=== PATIENT | female | born 1995 | race Caucasian/White ===

== ENCOUNTER 2016-07-25 13:05 | Observation (INO) | payer OTHER ==
[~2016-07-25] VITALS: Ht 172.7 cm; Wt 78.0 kg
[~2016-07-25 13:05] MED LIST: ALPR-411 PO; IBUP-1050 PO; PRLSR20 PO; PROM25TA PO; SERT50TA PO
[2016-07-25] MEDS ORDERED: SODIUM CHLORIDE 0.9% 1000ML 1,000 ML IV STA (13:29)
[2016-07-25] MEDS ORDERED: ONDANSETRON INJ 2 MG/ML 2 ML VIAL IV STA (13:29)
[2016-07-25] MEDS ORDERED: OPTIRAY 320 IV PRN (13:45)
[2016-07-25] MEDS ORDERED: GABA-113 PO (13:49)
[2016-07-25] MEDS ORDERED: FLUO20CA35 PO (13:49)
[2016-07-25] MEDS ORDERED: LINA1CAP PO ×2 (13:49→19:14)
[2016-07-25] MEDS ORDERED: PROM25TA9 PO (13:49)
[2016-07-25] MEDS ORDERED: DULO-24 PO (13:49)
[2016-07-25] MEDS ORDERED: LORA-741 PO (13:49)
[2016-07-25 14:11] LABS: BASO % 0.2 %; BASO ABS # 0.04 K/uL (0-0.2); COMPLETE YES; EOS % 0.9 %; HEMATOCRIT 40.8 % (37-47); IG% 0.4 %; LYMPH % 6.4 %; LYMPH ABS # 1.26 K/uL (1.2-3.4); MEAN CELL VOLUME 89.5 fL (80-100); MEAN CORPUSCULAR HEMOGLOBIN 29.8 pg (25-34); MEAN CORPUSCULAR HGB CONC 33.3 g/dl (32-36); MEAN PLATELET VOLUME 10.8 fL (7.4-10.4); MONO % 2.9 %; NEUT % 89.2 %; PLATELET COUNT 261 K/uL (130-400); RED BLOOD COUNT 4.56 M/uL (4.2-5.4); WHITE BLOOD COUNT 19.67 K/uL (4.8-10.8)
[2016-07-25 14:54] LABS: ALB/GLOB RATIO 1.1 (0.9-2); BUN/CREATININE RATIO 9.4 (10-20); POTASSIUM 3.5 mmol/L (3.5-5.1)
--- NOTE | 2016-07-25 15:07 | EMERGENCY ROOM VISIT NOTE ---
History First contact with patient: 13:18 Chief Complaint: GI ASSESSMENT Stated Complaint: GAS,PAIN,VOMITING,DIZZY,NO BM FOR 2 DAYS Nursing Triage Summary: pt to the ED with c/o bright red blood with BM which she has had for months and dunia told her it was from constipation pain around umbilicus History of Present Illness The patient is a 21 year old female who presents to the Emergency Room with complaints of abdominal pain. The patient reports a history of chronic constipation and chronic hematochezia. She had a colonoscopy approximately one month ago which was otherwise unremarkable. The patient sees Dr. Yepez. She states that she has not had a bowel movement for 2 days. She reports diffuse abdominal pain which is worse in the right lower quadrant. She reports nausea. She rates her discomfort a 7/10. She denies fevers. She reports feeling dizzy and having nausea and vomiting. She denies any urinary symptoms. She denies any history of abdominal surgery. Review of Systems A 10 system review of systems was completed with positives and pertinent negatives listed in the HPI. Past Medical/Surgical History Medical Problems: (1) Anxiety (2) Chronic back pain (3) Colitis (4) Constipation (5) Depression (6) Fibromyalgia (7) GERD (gastroesophageal reflux disease) (8) Lyme disease (9) Mononucleosis (10) Pneumonia Surgical Problems: (1) H/O colonoscopy (2) H/O esophagogastroduodenoscopy (3) S/P tonsillectomy Social History Alcohol Use: none Drug Use: none Marital Status: single Housing Status: lives with family Occupation Status: unemployed Current/Historical Medications Scheduled Duloxetine HCl (Cymbalta), 20 MG PO DAILY Fluoxetine (Prozac), 60 MG PO HS Gabapentin (Neurontin), 600 MG PO TID Linaclotide (Linzess), 1 TAB PO Q2D Omeprazole (Prilosec), 20 MG PO DAILY Scheduled PRN Cyclobenzaprine Hcl (Flexeril), 10 MG PO Q6 PRN for Muscle Spasms Lidocaine-Hydrocortisone Aceta (Lidazone Hc), 1 APPLN DC UD PRN for rectal pain Lorazepam (Ativan), 0.5 MG PO DAILY PRN for Anxiety Jcfdmujzy-Wpmjnldiyuwci-Qckiit (Preparation H), 1 APPLN DC UD PRN for rectal pain Promethazine Hcl (Phenergan), 25 MG PO Q6H PRN for Nausea Allergies Coded Allergies: Escitalopram (Unverified Allergy, Severe, DRY HEAVE, 07/25/16) Pineapple (Verified Allergy, Unknown, TONGUE SWELLS,ITCHING, 07/25/16) Physical Exam Vital Signs Date Time Temp Pulse Resp B/P Pulse Ox O2 Delivery O2 Flow Rate FiO2 07/25/16 18:04 36.8 07/25/16 17:54 100 Room Air 07/25/16 17:26 78 14 130/74 100 Room Air 07/25/16 16:23 88 16 127/92 100 Room Air 07/25/16 14:55 84 16 111/80 100 Room Air 07/25/16 13:48 96 16 122/77 99 Room Air 07/25/16 13:14 86 16 117/81 99 Room Air Physical Exam VITALS: Vitals are noted on the nurse's note and reviewed by myself. Vital signs stable. The patient is afebrile. GENERAL: This is a 21-year-old female, in no acute distress, nondiaphoretic, well-developed well-nourished. SKIN: The skin was without rashes, erythema, edema, or bruising. There is no tenting of the skin. Capillary reflex less than 2 seconds. HEAD: Normocephalic atraumatic. EARS: External ears are normal in appearance. EYES: Pupils equal round and reactive to light and accommodation. Conjunctivae without injection, sclerae without icterus. Extraocular movements intact. NOSE: Patent, turbinates without inflammation or discharge. MOUTH: Mucous membranes moist. Tonsils are not enlarged. Pharynx without erythema or exudate. Uvula midline. Airway patent. Tongue does not deviate. NECK: Supple without nuchal rigidity. No JVD. HEART: Regular rate and rhythm without murmurs gallops or rubs. LUNGS: Clear to auscultation bilaterally without wheezes, rales or rhonchi. No retractions or accessory muscle use. ABDOMEN: Positive bowel sounds x 4. Soft, mild diffuse tenderness, moderate right lower quadrant tenderness masses or organomegaly. MUSCULOSKELETAL: No muscle atrophy, erythema, or edema noted. Full range of motion in all extremities. Normal gait. Strength 5/5 throughout. NEURO: Patient was alert and oriented to person place and time. No focal neurological deficits. Medical Decision & Procedures ER Provider Diagnostic Interpretation: CT SCAN OF THE ABDOMEN AND PELVIS WITH IV CONTRAST CLINICAL HISTORY: Right lower quadrant abdominal pain. Constipation. COMPARISON STUDY: Abdominal CT dated 10/27/2012. TECHNIQUE: Following the IV administration of 92 cc of Optiray 320, CT scan of the abdomen and pelvis is performed from the lung bases to the proximal femora. Images are reviewed in the axial, sagittal, and coronal planes. IV contrast was administered without complication. Automated dose control exposure was utilized. CT DOSE: 404.12 mGy.cm FINDINGS: Lung bases: The heart is normal in size and without pericardial effusion. The lung bases are clear. Liver: The contrast-enhanced liver is normal in size, contour, and attenuation. There is no intrahepatic biliary ductal dilatation. The hepatic veins and portal veins are patent. Gallbladder: Unremarkable. Spleen: Normal in size and attenuation. Pancreas: Unremarkable. Adrenal glands: Unremarkable. Kidneys: The contrast enhanced kidneys are normal in size and without hydronephrosis. The kidneys enhance symmetrically. There is a circumaortic left renal vein. Abdominal vasculature: The abdominal aorta is normal in course and caliber. Bowel: The small bowel and colon are normal in course and caliber. There is wall thickening and mucosal edema seen throughout the colon, greatest involving the right colon. There is faint pericolonic stranding, and the appearance is consistent with a mild pancolitis. The appendix is is well-visualized and normal. Peritoneum: There is no intraperitoneal free air or abdominal ascites. There is a tiny fat-containing umbilical hernia. Lymphadenopathy: None. Pelvic viscera: The bladder, uterus, and adnexa are normal as visualized. There are bilateral ovarian follicles. Skeletal structures: No lytic or blastic lesions are seen. IMPRESSION: Findings are consistent with a nonspecific pancolitis, likely on an infectious or inflammatory basis in this age group. Laboratory Results 07/25/16 13:45 Red Blood Count 4.56, Mean Corpuscular Volume 89.5, Mean Corpuscular Hemoglobin 29.8, Mean Corpuscular Hemoglobin Concent 33.3, Mean Platelet Volume 10.8, Neutrophils (%) (Auto) 89.2, Lymphocytes (%) (Auto) 6.4, Monocytes (%) (Auto) 2.9, Eosinophils (%) (Auto) 0.9, Basophils (%) (Auto) 0.2, Neutrophils # (Auto) 17.56, Lymphocytes # (Auto) 1.26, Monocytes # (Auto) 0.57, Eosinophils # (Auto) 0.17, Basophils # (Auto) 0.04 07/25/16 13:45 Test 07/25/16 13:45 07/25/16 18:00 White Blood Count 19.67 K/uL (4.8-10.8) Red Blood Count 4.56 M/uL (4.2-5.4) Hemoglobin 13.6 g/dL (12.0-16.0) Hematocrit 40.8 % (37-47) Mean Corpuscular Volume 89.5 fL (80-100) Mean Corpuscular Hemoglobin 29.8 pg (25-34) Mean Corpuscular Hemoglobin Concent 33.3 g/dl (32-36) Platelet Count 261 K/uL (130-400) Mean Platelet Volume 10.8 fL (7.4-10.4) Neutrophils (%) (Auto) 89.2 % Lymphocytes (%) (Auto) 6.4 % Monocytes (%) (Auto) 2.9 % Eosinophils (%) (Auto) 0.9 % Basophils (%) (Auto) 0.2 % Neutrophils # (Auto) 17.56 K/uL (1.4-6.5) Lymphocytes # (Auto) 1.26 K/uL (1.2-3.4) Monocytes # (Auto) 0.57 K/uL (0.11-0.59) Eosinophils # (Auto) 0.17 K/uL (0-0.5) Basophils # (Auto) 0.04 K/uL (0-0.2) RDW Standard Deviation 39.8 fL (36.4-46.3) RDW Coefficient of Variation 12.1 % (11.5-14.5) Immature Granulocyte % (Auto) 0.4 % Immature Granulocyte # (Auto) 0.07 K/uL (0.00-0.02) Urine Color DK YELLOW Urine Appearance CLEAR (CLEAR) Urine pH 5.0 (4.5-7.5) Urine Specific [place] 1.009 (1.000-1.030) Urine Protein NEG (NEG) Urine Glucose (UA) NEG (NEG) Urine Ketones NEG (NEG) Urine Occult Blood NEG (NEG) Urine Nitrite NEG (NEG) Urine Bilirubin NEG (NEG) Urine Urobilinogen NEG (NEG) Urine Leukocyte Esterase SMALL (NEG) Urine WBC (Auto) 5-10 /hpf (0-5) Urine RBC (Auto) 0-4 /hpf (0-4) Urine Hyaline Casts (Auto) 1-5 /lpf (0-5) Urine Epithelial Cells (Auto) >30 /lpf (0-5) Urine Bacteria (Auto) NEG (NEG) Anion Gap 7.0 mmol/L (3-11) Est Creatinine Clear Calc Drug Dose 96.9 ml/min Estimated GFR () 92.6 Estimated GFR (Non- 79.9 BUN/Creatinine Ratio 9.4 (10-20) Calcium Level 9.0 mg/dl (8.5-10.1) Total Bilirubin 0.3 mg/dl (0.2-1) Aspartate Amino Transf (AST/SGOT) 17 U/L (15-37) Alanine Aminotransferase (ALT/SGPT) 21 U/L (12-78) Alkaline Phosphatase 90 U/L (45-117) Total Protein 7.4 gm/dl (6.4-8.2) Albumin 3.9 gm/dl (3.4-5.0) Globulin 3.5 gm/dl (2.5-4.0) Albumin/Globulin Ratio 1.1 (0.9-2) Lipase 151 U/L (73-393) Medications Administered Medications (Trade) Dose Ordered Sig/Mel Route Start Time Stop Time Status Last Admin Dose Admin Sodium Chloride (Nss 1000ml) 1,000 ml @ 999 mls/hr Q1H1M STAT IV 07/25/16 13:29 07/25/16 14:29 DC 07/25/16 13:44 999 MLS/HR Ondansetron HCl (Zofran Inj) 4 mg NOW STAT IV 07/25/16 13:29 07/25/16 13:32 DC 07/25/16 13:44 4 MG Ciprofloxacin/ Dextrose (Cipro / D5w) 400 mg NOW STAT IV 07/25/16 17:10 07/25/16 17:11 DC 07/25/16 17:24 400 MG Metronidazole (Flagyl / Nss) 500 mg NOW STAT IV 07/25/16 17:10 07/25/16 17:11 DC 07/25/16 17:24 500 MG ED Course The patient was seen and examined. Previous visits were reviewed. The patient does not have a fever. She does have a leukocytosis of 19.67. She does not have any significant electrolyte abnormalities. Lipase was not elevated. Urinalysis suggests contamination. Stool studies are pending. CT scan of abdomen and pelvis reveals pancolitis The patient was hydrated with normal saline She was given 4 mg IV Zofran She was given 400 mg IV Cipro She was given 500 mg IV Flagyl The patient presents to the emergency department with an ongoing history of intermittent abdominal pain, hematochezia, constipation. The patient has seen Dr. Yepez and had a colonoscopy in April. Her sister has ulcerative colitis and her mother has IBS. The patient was found to have a leukocytosis and a pancolitis on CT scan. I discussed the case with Eliot Stockton. She recommended IV Cipro, IV Flagyl, stool studies admission to the hospital service. [facility] will [facility] the patient The case was discussed with Dr. Hernandez who agrees with the assessment and treatment plan Medical Decision DIFFERENTIAL DIAGNOSIS: Hepatitis, cholecystitis, cholangitis, biliary colic, pancreatitis, pneumonia, subdiaphragmatic abscess, appendicitis, inguinal hernia , nephrolithiasis, inflammatory bowel disease, mesenteric adenitis, peptic ulcer disease, GERD, gastritis, pancreatitis, myocardial infarction, pericarditis, ruptured aortic aneurysm, appendicitis, gastroenteritis, bowel obstruction, splenic infarct, diverticulitis, mesenteric ischemia, metabolic, peritonitis, among others. Impression Primary Impression: Pancolitis Additional Impressions: Leukocytosis Right lower quadrant abdominal pain Departure Information Referrals Chong Malin M.D. (PCP) Patient Instructions [facility] Problem Qualifiers Additional Impressions:
[2016-07-25 16:04] LABS: URINE APPEARANCE CLEAR (CLEAR); URINE BILIRUBIN NEG (NEG); URINE COLOR DK YELLOW; URINE EPITHELIAL CELL AUTO >30 /lpf (0-5); URINE NITRITE NEG (NEG); URINE SPECIFIC GRAVITY 1.009 (1.000-1.030); UROBILINOGEN NEG (NEG); ZZUR CULT IF INDIC CLEAN CATCH NO
[2016-07-25 16:12] LABS: MANUAL MICROSCOPIC REQUIRED? NO; REVIEW REQ? NO
--- NOTE | 2016-07-25 16:28 | DIAGNOSTIC IMAGING REPORT ---
CT SCAN OF THE ABDOMEN AND PELVIS WITH IV CONTRAST CLINICAL HISTORY: Right lower quadrant abdominal pain. Constipation. COMPARISON STUDY: Abdominal CT dated 10/27/2012. TECHNIQUE: Following the IV administration of 92 cc of Optiray 320, CT scan of the abdomen and pelvis is performed from the lung bases to the proximal femora. Images are reviewed in the axial, sagittal, and coronal planes. IV contrast was administered without complication. Automated dose control exposure was utilized. CT DOSE: 404.12 mGy.cm FINDINGS: Lung bases: The heart is normal in size and without pericardial effusion. The lung bases are clear. Liver: The contrast-enhanced liver is normal in size, contour, and attenuation. There is no intrahepatic biliary ductal dilatation. The hepatic veins and portal veins are patent. Gallbladder: Unremarkable. Spleen: Normal in size and attenuation. Pancreas: Unremarkable. Adrenal glands: Unremarkable. Kidneys: The contrast enhanced kidneys are normal in size and without hydronephrosis. The kidneys enhance symmetrically. There is a circumaortic left renal vein. Abdominal vasculature: The abdominal aorta is normal in course and caliber. Bowel: The small bowel and colon are normal in course and caliber. There is wall thickening and mucosal edema seen throughout the colon, greatest involving the right colon. There is faint pericolonic stranding, and the appearance is consistent with a mild pancolitis. The appendix is is well-visualized and normal. Peritoneum: There is no intraperitoneal free air or abdominal ascites. There is a tiny fat-containing umbilical hernia. Lymphadenopathy: None. Pelvic viscera: The bladder, uterus, and adnexa are normal as visualized. There are bilateral ovarian follicles. Skeletal structures: No lytic or blastic lesions are seen. IMPRESSION: Findings are consistent with a nonspecific pancolitis, likely on an infectious or inflammatory basis in this age group. Electronically signed by: Armin Wong M.D. 07/25/2016 4:26 PM Dictated Date/Time: 07/25/2016 4:21 PM
[2016-07-25] MEDS ORDERED: CIPROFLOXACIN 400MG / 200ML D5W IV STA (17:10)
[2016-07-25] MEDS ORDERED: METRONIDAZOLE 500MG / 100ML NSS IV STA (17:10)
[2016-07-25 17:54] VITALS: O2SAT 100; Ht 172.7 cm; Wt 78.0 kg
[2016-07-25] MEDS ORDERED: PRAMCRE2 PR (18:38)
[2016-07-25] MEDS ORDERED: [UNRECOGNIZED DRUG - CODE] PR (18:38)
[2016-07-25] MEDS ORDERED: CYCL10TA6 PO (18:38)
[2016-07-25] MEDS: ONDANSETRON INJ 2 MG/ML 2 ML VIAL IV PRN (18:43)
[2016-07-25] MEDS ORDERED: LORAZEPAM 0.5 MG TAB PO PRN (18:45)
[2016-07-25] MEDS ORDERED: NON-FORMULARY MEDICATION (Linaclotide (Linzess) 145 MCG) PO SCH (18:45)
[2016-07-25] MEDS ORDERED: PROMETHAZINE HCL 25 MG TAB PO PRN (18:45)
[2016-07-25] MEDS ORDERED: IV FLUIDS COMPLETED PRN (18:45)
--- NOTE | 2016-07-25 19:16 | History and Physical ---
History & Physical Date & Time of Service: Jul 25, 2016 at 18:41 Chief Complaint: Gas,Pain,Vomiting,Dizzy,No Bm For 2 Days Primary Care Physician: Chong Malin M.D. History of Present Illness Source: patient, clinic records This is a 21 year old female with PMH of GERD, chronic constipation, chronic back pain, fibromyalgia, depression, anxiety, who presents to the ED with abdominal pain. She was seen by Ana AGUERO in Apr 2016 for rectal bleeding and chronic constipation.. Had colonoscopy 04/26/2016 which showed hemorrhoids and solitary rectal ulcer. She reports ongoing constipation up until today with ongoing rectal pain, straining for stool, and bright red blood per rectum (blood fills the toilet with every BM). Then this morning she developed sharp pain in central low abdomen with diffuse "gas pain" and sensation she needed to defecate. After that time has had 2 liquid BM's with bright red blood. Passing stool helped the pain which was initially 8/10 and now rated 2/10. She reports associated fatigue, generalized weakness, feeling off balance. Last food intake was at 6 am today. PO intake was normal before. Has chronic intermittent nausea relieved by Phenergan. Reflux has been controlled on omeprazole. Weight has been stable. Not taking narcotic pain med in past 1 month. Denies fever, chills, sweats, oral sores, swallowing difficulty , URI symptoms, cough, CP, SOB, vomiting, melena, dysuria, frequency, urgency, rash, calf pain, edema. 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 diff. No recent travel or antibiotics. The pt does not have a personal hx of inflammatory bowel disease. No hx of abdominal surgery. Past Medical/Surgical History Medical Problems: (1) Anxiety Status: Chronic (2) Chronic back pain Status: Chronic (3) Constipation Status: Chronic (4) Depression Status: Chronic (5) Fibromyalgia Status: Chronic (6) GERD (gastroesophageal reflux disease) Status: Chronic (7) Lyme disease Status: Resolved (8) Mononucleosis Status: Resolved (9) Pneumonia Status: Resolved Surgical Problems: (1) H/O colonoscopy Permanent Comment: 04/26/2016- hemorrhoids, solitary rectal ulcer Status: Chronic (2) H/O esophagogastroduodenoscopy Permanent Comment: WNL in 11/2012 Status: Chronic (3) S/P tonsillectomy Status: Chronic Family History Ulcerative colitis SISTER Social History Smoking Status: Never Smoker Alcohol Use: occasionally (1-2 drinks per year) Drug Use: none Marital Status: single, in relationship Housing status: lives with family (with mother and fiance) Occupational Status: employed (nurse at alf) Allergies Coded Allergies: Escitalopram (Unverified Allergy, Severe, DRY HEAVE, 07/25/16) Pineapple (Verified Allergy, Unknown, TONGUE SWELLS,ITCHING, 07/25/16) Home Medications Scheduled Duloxetine HCl (Cymbalta), 20 MG PO DAILY Fluoxetine (Prozac), 60 MG PO HS Gabapentin (Neurontin), 600 MG PO TID Linaclotide (Linzess), 1 TAB PO Q2D Omeprazole (Prilosec), 20 MG PO DAILY Scheduled PRN Cyclobenzaprine Hcl (Flexeril), 10 MG PO Q6 PRN for Muscle Spasms Lidocaine-Hydrocortisone Aceta (Lidazone Hc), 1 APPLN MT UD PRN for rectal pain Lorazepam (Ativan), 0.5 MG PO DAILY PRN for Anxiety Rjdcwxxas-Jesjlolunjolp-Mabgpe (Preparation H), 1 APPLN MT UD PRN for rectal pain Promethazine Hcl (Phenergan), 25 MG PO Q6H PRN for Nausea Review of Systems Ten point ROS performed with pertinent positives and negatives noted in HPI. Physical Exam Vital Signs Date Time Temp Pulse Resp B/P Pulse Ox O2 Delivery O2 Flow Rate FiO2 07/25/16 18:04 36.8 07/25/16 17:54 100 Room Air 07/25/16 17:26 78 14 130/74 100 Room Air 07/25/16 16:23 88 16 127/92 100 Room Air 07/25/16 14:55 84 16 111/80 100 Room Air 07/25/16 13:48 96 16 122/77 99 Room Air 07/25/16 13:14 86 16 117/81 99 Room Air General Appearance: WD/WN, no apparent distress, + pertinent finding (pleasant alert 21 year old female, lying in bed, no distress) Head: normocephalic, atraumatic Eyes: normal inspection, PERRL, sclerae normal ENT: hearing grossly normal, pharynx normal Neck: supple, trachea midline Respiratory/Chest: lungs clear, normal breath sounds, no respiratory distress Cardiovascular: regular rate, rhythm, no murmur Abdomen/GI: normal bowel sounds, soft, + pertinent finding (moderately tender in suprapubic region. mildly tender in RLQ. no guarding. no rebound tenderness. ) Extremities/Musculoskelatal: no calf tenderness, normal capillary refill, no pedal edema Neurologic/Psych: alert, normal mood/affect, oriented x 3, + pertinent finding (grossly nonfocal ) Skin: normal color, warm/dry Diagnostics Laboratory Results Results Past 24 Hours Test 07/25/16 13:45 07/25/16 18:00 Range/Units White Blood Count 19.67 4.8-10.8 K/uL Red Blood Count 4.56 4.2-5.4 M/uL Hemoglobin 13.6 12.0-16.0 g/dL Hematocrit 40.8 37-47 % Mean Corpuscular Volume 89.5 80-100 fL Mean Corpuscular Hemoglobin 29.8 25-34 pg Mean Corpuscular Hemoglobin Concent 33.3 32-36 g/dl Platelet Count 261 130-400 K/uL Mean Platelet Volume 10.8 7.4-10.4 fL Neutrophils (%) (Auto) 89.2 % Lymphocytes (%) (Auto) 6.4 % Monocytes (%) (Auto) 2.9 % Eosinophils (%) (Auto) 0.9 % Basophils (%) (Auto) 0.2 % Neutrophils # (Auto) 17.56 1.4-6.5 K/uL Lymphocytes # (Auto) 1.26 1.2-3.4 K/uL Monocytes # (Auto) 0.57 0.11-0.59 K/uL Eosinophils # (Auto) 0.17 0-0.5 K/uL Basophils # (Auto) 0.04 0-0.2 K/uL RDW Standard Deviation 39.8 36.4-46.3 fL RDW Coefficient of Variation 12.1 11.5-14.5 % Immature Granulocyte % (Auto) 0.4 % Immature Granulocyte # (Auto) 0.07 0.00-0.02 K/uL Urine Color DK YELLOW Urine Appearance CLEAR CLEAR Urine pH 5.0 4.5-7.5 Urine Specific [place] 1.009 1.000-1.030 Urine Protein NEG NEG Urine Glucose (UA) NEG NEG Urine Ketones NEG NEG Urine Occult Blood NEG NEG Urine Nitrite NEG NEG Urine Bilirubin NEG NEG Urine Urobilinogen NEG NEG Urine Leukocyte Esterase SMALL NEG Urine WBC (Auto) 5-10 0-5 /hpf Urine RBC (Auto) 0-4 0-4 /hpf Urine Hyaline Casts (Auto) 1-5 0-5 /lpf Urine Epithelial Cells (Auto) >30 0-5 /lpf Urine Bacteria (Auto) NEG NEG Sodium Level 143 136-145 mmol/L Potassium Level 3.5 3.5-5.1 mmol/L Chloride Level 107 98-107 mmol/L Carbon Dioxide Level 29 21-32 mmol/L Anion Gap 7.0 3-11 mmol/L Blood Urea Nitrogen 9 7-18 mg/dl Creatinine 1.00 0.60-1.20 mg/dl Est Creatinine Clear Calc Drug Dose 96.9 ml/min Estimated GFR () 92.6 Estimated GFR (Non- 79.9 BUN/Creatinine Ratio 9.4 10-20 Random Glucose 122 70-99 mg/dl Calcium Level 9.0 8.5-10.1 mg/dl Total Bilirubin 0.3 0.2-1 mg/dl Aspartate Amino Transf (AST/SGOT) 17 15-37 U/L Alanine Aminotransferase (ALT/SGPT) 21 12-78 U/L Alkaline Phosphatase 90 45-117 U/L Total Protein 7.4 6.4-8.2 gm/dl Albumin 3.9 3.4-5.0 gm/dl Globulin 3.5 2.5-4.0 gm/dl Albumin/Globulin Ratio 1.1 0.9-2 Lipase 151 73-393 U/L Microbiology Results 07/25/16 WBC Smear, Received Pending 07/25/16 Shiga Toxin Test, Received Pending 07/25/16 Stool Culture, Received Pending 07/25/16 C.difficile Toxin B Gene (PCR), Received Pending Diagnostic Radiology CT SCAN OF THE ABDOMEN AND PELVIS WITH IV CONTRAST CLINICAL HISTORY: Right lower quadrant abdominal pain. Constipation. COMPARISON STUDY: Abdominal CT dated 10/27/2012. TECHNIQUE: Following the IV administration of 92 cc of Optiray 320, CT scan of the abdomen and pelvis is performed from the lung bases to the proximal femora. Images are reviewed in the axial, sagittal, and coronal planes. IV contrast was administered without complication. Automated dose control exposure was utilized. CT DOSE: 404.12 mGy.cm FINDINGS: Lung bases: The heart is normal in size and without pericardial effusion. The lung bases are clear. Liver: The contrast-enhanced liver is normal in size, contour, and attenuation. There is no intrahepatic biliary ductal dilatation. The hepatic veins and portal veins are patent. Gallbladder: Unremarkable. Spleen: Normal in size and attenuation. Pancreas: Unremarkable. Adrenal glands: Unremarkable. Kidneys: The contrast enhanced kidneys are normal in size and without hydronephrosis. The kidneys enhance symmetrically. There is a circumaortic left renal vein. Abdominal vasculature: The abdominal aorta is normal in course and caliber. Bowel: The small bowel and colon are normal in course and caliber. There is wall thickening and mucosal edema seen throughout the colon, greatest involving the right colon. There is faint pericolonic stranding, and the appearance is consistent with a mild pancolitis. The appendix is is well-visualized and normal. Peritoneum: There is no intraperitoneal free air or abdominal ascites. There is a tiny fat-containing umbilical hernia. Lymphadenopathy: None. Pelvic viscera: The bladder, uterus, and adnexa are normal as visualized. There are bilateral ovarian follicles. Skeletal structures: No lytic or blastic lesions are seen. IMPRESSION: Findings are consistent with a nonspecific pancolitis, likely on an infectious or inflammatory basis in this age group. Impression Assessment and Plan ABDOMINAL PAIN with DIARRHEA Possibly due to infectious colitis; ddx also includes inflammatory bowel disease Prior colonoscopy 04/2016- hemorrhoids and solitary rectal ulcer CT a/p- findings of nonspecific pancolitis, likely on an infectious or inflammatory basis + leucocytosis (WBC 19k), afebrile Stool studies pending including stool cx, WBC smear, C diff, giardia, cryptosporidium, isospora and cyclospora, ova and parasites Started on empiric Cipro and Flagyl in ER; will continue IV fluids Clear liquid diet Consult GI; Sarita Stockton contacted by ER provider; recommended admission, stool studies, IVF's, Cipro and Flagyl GI BLEEDING Ongoing rectal bleeding; Stool heme positive in ER possibly due to above vs. hemorrhoidal bleeding Hg 13.6; VSS IV PPI BID GI consulted DEPRESSION/ ANXIETY Stable; continue Prozac, Cymbalta and PRN Ativan CHRONIC BACK PAIN FIBROMYALGIA Continue gabapentin, Flexeril, Cymbalta DVT PROPHYLAXIS SCD's due to rectal bleeding FULL CODE DISPOSITION Observation to med/ surg Follows with Dr. Malin for primary care Patient seen in collaboration with Dr. Castro. Please see her addendum. I have seen and examined the patient and agree with the plan above. DO Matthew Level of Care Med/Surg Advanced Directives Existing Living Will: No Existing Power of State Game Protector: No Resuscitation Status FULL RESUSCITATION VTE Prophylaxis VTE Risk Assessment Done? Y/N: Yes Risk Level: Low Given or contraindicated: Treatment not indicated Social Service Consult None Apply
[2016-07-25 19:41] VITALS: BP 130/79; PULSE 85; TEMP 36.6; O2SAT 100
[2016-07-25] MEDS: PANTOprazole INJ 40 MG in SYRINGE 0 ML IV SCH (20:45)
[2016-07-25] MEDS: FLUOXETINE HCL 20 MG CAP PO SCH (20:46)
[2016-07-25] MEDS: SODIUM CHLORIDE 0.9% 1000ML 1,000 ML IV SCH (20:47)
[2016-07-25] MEDS: GABAPENTIN 300 MG CAP PO SCH (20:47)
[2016-07-25 21:02] LABS: PREG INTERNAL NEGATIVE QC NEG CLEAR BACKGROUND; PREG INTERNAL POSITIVE QC POS CONTROL LINE
[2016-07-25] MEDS: CYCLOBENZAPRINE HCL 10 MG TAB PO PRN (21:36)
[2016-07-26 00:33] VITALS: BP 111/69; PULSE 96; TEMP 36.8; O2SAT 97
[2016-07-26] MEDS: METRONIDAZOLE / NSS 500 MG in PREMIXED NSS 100 ML IV SCH ×3 (00:42→16:42)
[2016-07-26] MEDS: ACETAMINOPHEN 325 MG TAB PO PRN ×2 (00:45→09:09)
[2016-07-26] MEDS: SODIUM CHLORIDE 0.9% 1000ML 1,000 ML IV SCH ×2 (05:12→14:48)
[2016-07-26] MEDS: CIPROFLOXACIN / D5W 400 MG in PREMIXED IN D5W 200 ML IV SCH ×2 (05:12→16:42)
[2016-07-26 07:10] LABS: BASO % 0.2 %; BASO ABS # 0.02 K/uL (0-0.2); COMPLETE YES; EOS % 1.5 %; HEMATOCRIT 35.1 % (37-47); IG% 0.3 %; LYMPH % 18.5 %; LYMPH ABS # 2.03 K/uL (1.2-3.4); MEAN CELL VOLUME 90.2 fL (80-100); MEAN CORPUSCULAR HEMOGLOBIN 29.6 pg (25-34); MEAN CORPUSCULAR HGB CONC 32.8 g/dl (32-36); MEAN PLATELET VOLUME 10.6 fL (7.4-10.4); MONO % 7.7 %; NEUT % 71.8 %; PLATELET COUNT 227 K/uL (130-400); RED BLOOD COUNT 3.89 M/uL (4.2-5.4)
[2016-07-26 07:21] VITALS: BP 114/73; PULSE 97; TEMP 36.9; O2SAT 97
[2016-07-26 07:42] LABS: BUN/CREATININE RATIO 5.3 (10-20); CALCIUM 8.3 mg/dl (8.5-10.1); CREATININE 0.87 mg/dl (0.60-1.20); POTASSIUM 3.8 mmol/L (3.5-5.1)
[2016-07-26] MEDS: CYCLOBENZAPRINE HCL 10 MG TAB PO PRN (07:47)
[2016-07-26] MEDS: GABAPENTIN 300 MG CAP PO SCH ×3 (07:47→19:24)
[2016-07-26] MEDS: DULOXETINE HCL 20 MG CAP PO SCH (07:47)
[2016-07-26] MEDS: ONDANSETRON INJ 2 MG/ML 2 ML VIAL IV PRN (07:47)
[2016-07-26] MEDS: PANTOprazole INJ 40 MG in SYRINGE 0 ML IV SCH ×2 (09:09→19:30)
[2016-07-26] MEDS ORDERED: NURSING VERBAL MED ORDER ONE (09:30)
[2016-07-26] MEDS ORDERED: DICYCLOMINE HCL 10 MG CAP PO ONE (09:42)
[2016-07-26] MEDS ORDERED: MoRPHine SULFATE 2 MG/ML CARP IV PRN (09:45)
[2016-07-26] MEDS ORDERED: DICYCLOMINE HCL 10 MG CAP PO PRN ×2 (09:45→20:00)
--- NOTE | 2016-07-26 10:25 | Gastrointestinal Consultation ---
Gastrointestinal Consultation Date of Consultation: Jul 26, 2016 Attending Physician: Deonna Arzate Consulting Physician: Colin Mcmahan Reason for Consultation: Pancolitis History of Present Illness Patient is a 21 year old female who presented to ED yesterday w c/o severe abd cramping and pain x 1 day. She is an established pt in our GI clinic. I saw her initially on 01/14/16 for complaints of rectal bleeding, constipation despite OTC laxative uses. She had been on narcotics for shoulder and back pain. Eventually I started her on Linzess 290mcg daily for constipation and scheduled her for colonoscopy. She had this done by Dr. Yepez on 04/26 - found to have hemorhoids and a solitary rectal ulcer on anal verge. She also had a previous colonoscopy in 2012 w random colon bx which were unremarkable. Sister has hx of Ulcerative Colitis. Pt reports that the Linzess works great for her constipation but she can only take it every 2 days since she didn't want to be using the bathroom at work. She reports that if her stools are soft, her rectal bleeding is only mild. She's been applying incontinence barrier cream obtained from [employer] she worked at to the rectum area, as well as Lidocaine/ Hydrocortisone cream I prescribed to help w rectal pain. Yesterday she felt urge to defecate, lower abd cramping. She took Linzess and sit on commode for 1 hour w/o bowel movement, and without passing flatus. Pain got worse and she called office, then recommended to go to ED to be evaluated for possible bowel obstruction. Initial labs showed WBC of 19K, H/H stable, CMP overall unremarkable. She had CT abd/pelvis which showed diffuse colonic thickening and edema, mostly on R side suspicious for non specific pancolitis ? inflammatory vs infectious in nature. Pt eventually had BM in ED which she reported as being also mixed w bright red blood. She was admitted for pain control, as well as given IV Cipro/ Flagyl, IVF. This AM WBC down to 11. Stool studies pending, Cdiff negative. She reported several cases of "GI bug" in the half-way she worked at. Otherwise denies any undercooked meats or raw foods. This AM BM w specks of stool and minimal rectal bleeding. Still having mild lower abd cramping and also mild nausea w/o vomiting. 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) Allergies Coded Allergies: Escitalopram (Unverified Allergy, Severe, DRY HEAVE, 07/25/16) Pineapple (Verified Allergy, Unknown, TONGUE SWELLS,ITCHING, 07/25/16) Current Medications Home Meds and Scripts Medications Dose Route/Sig Max Daily Dose Days Date Category Linzess (Linaclotide) 145 Mcg Cap 1 Tab PO Q2D 07/25/16 Reported Preparation H (Cdilxbnmm-Ulajkgfvsgkwz-Tzpwvk) 1 Cre Cre 1 Appln RI UD PRN 07/25/16 Reported Lidazone Hc (Lidocaine-Hydrocortisone Aceta) 1 Cre Cre 1 Appln RI UD PRN 07/25/16 Reported Flexeril (Cyclobenzaprine Hcl) 10 Mg Tab 10 Mg PO Q6 PRN 07/25/16 Reported Neurontin (Gabapentin) 300 Mg Cap 600 Mg PO TID 07/25/16 Reported Cymbalta (Duloxetine HCl) 20 Mg Cap 20 Mg PO DAILY 30 07/25/16 Reported Prozac (Fluoxetine HCl) 20 Mg Cap 60 Mg PO HS 07/25/16 Reported Phenergan (Promethazine HCl) 25 Mg Tab 25 Mg PO Q6H PRN 07/25/16 Reported Ativan (Lorazepam) 0.5 Mg Tab 0.5 Mg PO DAILY PRN 07/25/16 Reported Prilosec (Omeprazole) 20 Mg Capcr 20 Mg PO DAILY 02/15/13 Reported Review of Systems Constitutional: No chills, No fever Respiratory: No cough, No shortness of breath Cardiac: No chest pain Abdomen: + GI bleeding, + diarrhea, + nausea, + pain, + see HPI, No vomiting Physical Exam Date Time Temp Pulse Resp B/P Pulse Ox O2 Delivery O2 Flow Rate FiO2 07/26/16 08:00 Room Air 07/26/16 07:21 36.9 97 20 114/73 97 Room Air 07/26/16 00:33 36.8 96 16 111/69 97 Room Air 07/26/16 00:00 Room Air 07/25/16 19:41 36.6 85 18 130/79 100 Room Air 07/25/16 19:34 88 150/66 07/25/16 18:04 36.8 07/25/16 17:54 100 Room Air 07/25/16 17:26 78 14 130/74 100 Room Air 07/25/16 16:23 88 16 127/92 100 Room Air 07/25/16 14:55 84 16 111/80 100 Room Air 07/25/16 13:48 96 16 122/77 99 Room Air 07/25/16 13:14 86 16 117/81 99 Room Air General Appearance: WD/WN, no apparent distress Eyes: normal inspection, PERRL, EOMI Neck: supple, no JVD, trachea midline Respiratory/Chest: normal breath sounds, no respiratory distress, no accessory muscle use Cardiovascular: regular rate, rhythm, no gallop, no murmur Abdomen: + abnormal bowel sounds (hypoactive ), + tenderness (across lower abd area) Extremities: normal inspection, no pedal edema, no calf tenderness Neurologic/Psych: alert, normal mood/affect, oriented x 3 Skin: normal color, no jaundice, no rash Laboratory Results Last 24 Hours Test 07/25/16 13:45 07/25/16 18:00 07/26/16 06:25 07/26/16 09:42 White Blood Count 19.67 K/uL 11.00 K/uL Red Blood Count 4.56 M/uL 3.89 M/uL Hemoglobin 13.6 g/dL 11.5 g/dL Hematocrit 40.8 % 35.1 % Mean Corpuscular Volume 89.5 fL 90.2 fL Mean Corpuscular Hemoglobin 29.8 pg 29.6 pg Mean Corpuscular Hemoglobin Concent 33.3 g/dl 32.8 g/dl Platelet Count 261 K/uL 227 K/uL Mean Platelet Volume 10.8 fL 10.6 fL Neutrophils (%) (Auto) 89.2 % 71.8 % Lymphocytes (%) (Auto) 6.4 % 18.5 % Monocytes (%) (Auto) 2.9 % 7.7 % Eosinophils (%) (Auto) 0.9 % 1.5 % Basophils (%) (Auto) 0.2 % 0.2 % Neutrophils # (Auto) 17.56 K/uL 7.90 K/uL Lymphocytes # (Auto) 1.26 K/uL 2.03 K/uL Monocytes # (Auto) 0.57 K/uL 0.85 K/uL Eosinophils # (Auto) 0.17 K/uL 0.17 K/uL Basophils # (Auto) 0.04 K/uL 0.02 K/uL RDW Standard Deviation 39.8 fL 39.9 fL RDW Coefficient of Variation 12.1 % 12.3 % Immature Granulocyte % (Auto) 0.4 % 0.3 % Immature Granulocyte # (Auto) 0.07 K/uL 0.03 K/uL Urine Color DK YELLOW Urine Appearance CLEAR Urine pH 5.0 Urine Specific [place] 1.009 Urine Protein NEG Urine Glucose (UA) NEG Urine Ketones NEG Urine Occult Blood NEG Urine Nitrite NEG Urine Bilirubin NEG Urine Urobilinogen NEG Urine Leukocyte Esterase SMALL Urine WBC (Auto) 5-10 /hpf Urine RBC (Auto) 0-4 /hpf Urine Hyaline Casts (Auto) 1-5 /lpf Urine Epithelial Cells (Auto) >30 /lpf Urine Bacteria (Auto) NEG Sodium Level 143 mmol/L 143 mmol/L Potassium Level 3.5 mmol/L 3.8 mmol/L Chloride Level 107 mmol/L 109 mmol/L Carbon Dioxide Level 29 mmol/L 26 mmol/L Anion Gap 7.0 mmol/L 8.0 mmol/L Blood Urea Nitrogen 9 mg/dl 5 mg/dl Creatinine 1.00 mg/dl 0.87 mg/dl Est Creatinine Clear Calc Drug Dose 96.9 ml/min 111.3 ml/min Estimated GFR () 92.6 109.6 Estimated GFR (Non- 79.9 94.6 BUN/Creatinine Ratio 9.4 5.3 Random Glucose 122 mg/dl 95 mg/dl Calcium Level 9.0 mg/dl 8.3 mg/dl Total Bilirubin 0.3 mg/dl Aspartate Amino Transf (AST/SGOT) 17 U/L Alanine Aminotransferase (ALT/SGPT) 21 U/L Alkaline Phosphatase 90 U/L Total Protein 7.4 gm/dl Albumin 3.9 gm/dl Globulin 3.5 gm/dl Albumin/Globulin Ratio 1.1 Lipase 151 U/L Impression Patient is a 21 year old female w hx of constipation, presented w severe abd pain, cramping. Labs showed leukocytosis, CT abd/pelvis w non specific pancolitis ? inflammatory vs infectious in nature. She had previous colonoscopies in 2012 and 04/2016 w/o findings of IBD signs in colonic bx but she does have a solitary rectal ulcer which is likely contributing to rectal bleeding when she has hard stools. 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 Plan - Continue Cipro/Flagyl IV antibx - Advanced to regular, low lactose, low fiber diet; if tolerating diet well w/o increased diarrhea may hep lock IV by end of day - Add Dicyclomine 10mg BID for cramping - F/U stool studies. - Check fecal calprotectin to r/o IBD though current presentation most likely infectious colitis. Her sister does have UC. I performed a history and physical examination of the patient. I have discussed the patient's case, impression and plan with LACI Saldana. Her note reflects my findings and plan. Possible infectious colitis. Doubt IBD. Colin Mcmahan MD
[2016-07-26 15:14] VITALS: BP 120/76; PULSE 97; TEMP 36.8; O2SAT 97
[2016-07-26] MEDS: DICYCLOMINE HCL 10 MG CAP PO SCH (19:24)
[2016-07-26] MEDS: FLUOXETINE HCL 20 MG CAP PO SCH (19:25)
--- NOTE | 2016-07-26 20:08 | Progress Note ---
Internal Med Progress Note Date of Service: Jul 26, 2016. Provider Documentation: SUBJECTIVE: mentions that abdominal pain has improved still having diarrhea mentions of feeling of bloating and nausea after meals no fever or chills OBJECTIVE: Vital Signs-as noted below Exam: General-no sign of distress Eyes-sclera non icteric ENT-NAD Lungs-CTA Heart-regular S1/S2 Abdomen-soft. mild tenderness in lower abdomen , Neuro-no focal neurological deficit Lab data as noted below. ASSESSMENT & PLAN: ABDOMINAL PAIN with DIARRHEA Prior colonoscopy 04/2016- hemorrhoids and solitary rectal ulcer CT a/p- findings of nonspecific pancolitis, likely on an infectious or inflammatory basis Leukocytosis has improved Stool studies negative including stool cx, WBC smear, C diff, giardia, cryptosporidium, isospora and cyclospora, ova and parasites PRN Imodium ordered on empiric Cipro and Flagyl appreciate GI Diet advanced to low lactose /low fiber diet tolerating well GI BLEEDING possible . hemorrhoidal bleeding Hg stable GI consulted -diet advanced DEPRESSION/ ANXIETY Stable; continue Prozac, Cymbalta and PRN Ativan CHRONIC BACK PAIN FIBROMYALGIA Continue gabapentin, Flexeril, Cymbalta DVT PROPHYLAXIS SCD's ambulate FULL CODE DISPOSITION discharge home when medically stable Follows with Dr. Malin for primary care Vital Signs: Date Time Temp Pulse Resp B/P Pulse Ox O2 Delivery O2 Flow Rate FiO2 07/26/16 16:00 Room Air 07/26/16 15:14 36.8 97 18 120/76 97 Room Air 07/26/16 08:00 Room Air 07/26/16 07:21 36.9 97 20 114/73 97 Room Air 07/26/16 00:33 36.8 96 16 111/69 97 Room Air 07/26/16 00:00 Room Air Lab Results: Results Past 24 Hours Test 07/26/16 06:25 07/26/16 17:30 Range/Units White Blood Count 11.00 4.8-10.8 K/uL Red Blood Count 3.89 4.2-5.4 M/uL Hemoglobin 11.5 12.0-16.0 g/dL Hematocrit 35.1 37-47 % Mean Corpuscular Volume 90.2 80-100 fL Mean Corpuscular Hemoglobin 29.6 25-34 pg Mean Corpuscular Hemoglobin Concent 32.8 32-36 g/dl Platelet Count 227 130-400 K/uL Mean Platelet Volume 10.6 7.4-10.4 fL Neutrophils (%) (Auto) 71.8 % Lymphocytes (%) (Auto) 18.5 % Monocytes (%) (Auto) 7.7 % Eosinophils (%) (Auto) 1.5 % Basophils (%) (Auto) 0.2 % Neutrophils # (Auto) 7.90 1.4-6.5 K/uL Lymphocytes # (Auto) 2.03 1.2-3.4 K/uL Monocytes # (Auto) 0.85 0.11-0.59 K/uL Eosinophils # (Auto) 0.17 0-0.5 K/uL Basophils # (Auto) 0.02 0-0.2 K/uL RDW Standard Deviation 39.9 36.4-46.3 fL RDW Coefficient of Variation 12.3 11.5-14.5 % Immature Granulocyte % (Auto) 0.3 % Immature Granulocyte # (Auto) 0.03 0.00-0.02 K/uL Sodium Level 143 136-145 mmol/L Potassium Level 3.8 3.5-5.1 mmol/L Chloride Level 109 98-107 mmol/L Carbon Dioxide Level 26 21-32 mmol/L Anion Gap 8.0 3-11 mmol/L Blood Urea Nitrogen 5 7-18 mg/dl Creatinine 0.87 0.60-1.20 mg/dl Est Creatinine Clear Calc Drug Dose 111.3 ml/min Estimated GFR () 109.6 Estimated GFR (Non- 94.6 BUN/Creatinine Ratio 5.3 10-20 Random Glucose 95 70-99 mg/dl Calcium Level 8.3 8.5-10.1 mg/dl
[2016-07-26] MEDS ORDERED: LOPERAMIDE HCL 2 MG CAP PO PRN (21:00)
[2016-07-26 23:21] VITALS: BP 104/69; PULSE 101; TEMP 37; O2SAT 97
[2016-07-27] MEDS: METRONIDAZOLE / NSS 500 MG in PREMIXED NSS 100 ML IV SCH ×3 (00:50→17:29)
[2016-07-27] MEDS: ONDANSETRON INJ 2 MG/ML 2 ML VIAL IV PRN ×3 (00:53→12:22)
[2016-07-27] MEDS: SODIUM CHLORIDE 0.9% 1000ML 1,000 ML IV SCH ×3 (00:53→20:45)
[2016-07-27] MEDS: CIPROFLOXACIN / D5W 400 MG in PREMIXED IN D5W 200 ML IV SCH ×2 (05:15→17:29)
[2016-07-27 07:18] VITALS: BP 114/76; PULSE 102; TEMP 36.7; O2SAT 98
[2016-07-27] MEDS: DICYCLOMINE HCL 10 MG CAP PO SCH ×3 (08:02→19:34)
[2016-07-27] MEDS: ACETAMINOPHEN 325 MG TAB PO PRN (08:02)
[2016-07-27] MEDS: DULOXETINE HCL 20 MG CAP PO SCH (08:02)
[2016-07-27] MEDS: GABAPENTIN 300 MG CAP PO SCH ×3 (08:03→19:34)
[2016-07-27] MEDS: PANTOprazole INJ 40 MG in SYRINGE 0 ML IV SCH (08:07)
--- NOTE | 2016-07-27 08:56 | Gastroenterology Progress Note ---
Progress Note Date of Service: Jul 27, 2016 Subjective Pt evaluation today including: conversation w/ patient, physical exam, chart review, lab review, review of inpatient medication list Pt reports still having lower abd cramping but Enyl is helping. Stool still watery but more formed than before, no more rectal bleeding. Some nausea, no vomiting. Afebrile overnight. Tolerating mostly CL diet, tried regular consistency yesterday and got nauseous as she was eating too much at one time. Review of Systems Constitutional: No chills, No fever Respiratory: No cough, No shortness of breath Cardiac: No chest pain, No palpitations Abdomen: + diarrhea, + nausea, + pain, + see HPI, No vomiting Medications Current Inpatient Medications Medications (Trade) Dose Ordered Sig/Mel Route Start Time Stop Time Status Last Admin Dose Admin Ioversol (Optiray 320) 100 ml UD PRN IV 07/25/16 13:45 07/29/16 13:44 Acetaminophen (Tylenol Tab) 650 mg Q4H PRN PO 07/25/16 18:30 08/24/16 18:29 07/27/16 08:02 650 MG Ondansetron HCl 4 mg 4 mg Q6H PRN IV 07/25/16 18:30 08/24/16 18:29 07/27/16 08:00 4 MG Sodium Chloride 1,000 ml @ 100 mls/hr Q10H IV 07/25/16 18:45 08/24/16 18:44 07/27/16 00:53 100 MLS/HR Ciprofloxacin/ Dextrose 400 mg/ Prmx 200 ml @ 100 mls/hr Q12H IV 07/26/16 05:00 08/05/16 04:59 07/27/16 05:15 100 MLS/HR Metronidazole/Prmx (Flagyl / Nss/ Premixed Nss) 100 ml @ 100 mls/hr Q8H IV 07/26/16 01:00 08/05/16 00:59 07/27/16 00:50 100 MLS/HR Duloxetine HCl (Cymbalta Cap) 20 mg DAILY PO 07/26/16 08:00 08/25/16 08:59 07/27/16 08:02 20 MG Fluoxetine HCl (Prozac Cap) 60 mg HS PO 07/25/16 21:00 08/24/16 20:59 07/26/16 19:25 60 MG Gabapentin (Neurontin Cap) 600 mg TID PO 07/25/16 20:00 08/24/16 20:59 07/27/16 08:03 600 MG Lorazepam (Ativan Tab) 0.5 mg DAILY PRN PO 07/25/16 18:45 08/24/16 18:44 Promethazine HCl (Phenergan Tab) 25 mg Q6H PRN PO 07/25/16 18:45 08/24/16 18:44 07/26/16 13:40 25 MG Miscellaneous Information (Order Awaiting Action) 1 ea QS N/A 07/26/16 00:00 08/25/16 00:00 Miscellaneous Information (Order Awaiting Action) 1 ea QS SD 07/26/16 00:00 08/25/16 00:00 Miscellaneous 1 ea 1 ea PRN PRN N/A 07/25/16 18:45 07/25/17 18:44 07/26/16 05:20 1 EA Pantoprazole Sodium/Syringe (Protonix Inj/ Syringe) 10 ml @ 5 mls/min DAILY@ IV 07/25/16 21:00 08/24/16 20:59 07/27/16 08:07 5 MLS/MIN Morphine Sulfate (MoRPHine SULFATE INJ) 1 mg Q6H PRN IV 07/26/16 09:45 08/09/16 09:44 07/26/16 13:40 1 MG Dicyclomine HCl (Bentyl Cap) 10 mg BID PO 07/26/16 20:00 08/25/16 19:59 07/27/16 08:02 10 MG Loperamide HCl (Imodium Cap) 2 mg Q8 PRN PO 07/26/16 21:00 08/25/16 20:59 Objective Vital Signs Date Time Temp Pulse Resp B/P Pulse Ox O2 Delivery O2 Flow Rate FiO2 07/27/16 07:18 36.7 102 16 114/76 98 Room Air 07/27/16 00:00 Room Air 07/26/16 23:21 37.0 101 20 104/69 97 Room Air 07/26/16 20:00 Room Air 07/26/16 16:00 Room Air 07/26/16 15:14 36.8 97 18 120/76 97 Room Air Physical Exam General Appearance: WD/WN, no apparent distress Eyes: normal inspection, PERRL, EOMI Neck: supple, no JVD, trachea midline Respiratory/Chest: normal breath sounds, no respiratory distress, no accessory muscle use Cardiovascular: regular rate, rhythm, no gallop, no murmur Abdomen: normal bowel sounds, soft, + tenderness (LLQ and across lower abd ) Extremities: normal inspection, no pedal edema, no calf tenderness Neurologic/Psych: alert, normal mood/affect, oriented x 3 Skin: normal color, no jaundice, no rash Laboratory Results Last 24 Hours Test 07/26/16 17:30 Assessment and Plan Patient is a 21 year old female w hx of constipation, presented w severe abd pain, cramping. Labs showed leukocytosis, CT abd/pelvis w non specific pancolitis ? inflammatory vs infectious in nature. She had previous colonoscopies in 2012 and 04/2016 w/o findings of IBD signs in colonic bx but she does have a solitary rectal ulcer which is likely contributing to rectal bleeding when she has hard stools. 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 Plans - Continue Cipro/Flagyl IV antibx; May convert to PO form for total of 10 days of treatment upon DC - Advanced to regular, low lactose, low fiber diet. - Increase Dicyclomine 10mg to TID for cramping - F/U stool studies. -> few WBC stool on cx but otherwise negative, Cdiff also negative. - Check fecal calprotectin to r/o IBD though current presentation most likely infectious colitis. Her sister does have UC. - Ok for DC by end of day or tomorrow as long as abd cramping, nausea in control and tolerating diet w/o increased nausea/vomiting/diarrhea. Will sign off, pls call if new questions or concerns arise.
[2016-07-27 14:45] VITALS: BP 112/75; PULSE 88; TEMP 36.5; O2SAT 96
--- NOTE | 2016-07-27 19:02 | Progress Note ---
Internal Med Progress Note Date of Service: Jul 27, 2016. Provider Documentation: SUBJECTIVE: still having cramping pain in abdomen diarrhea 4-5 times already , no blood in stool feels nauseous, diet advanced to low fat pt mentions of poor appetite wants to stay in hospital for ongoing GI symptom does not feel comfortable to go home today OBJECTIVE: Vital Signs-as noted below Exam: General-no sign of distress Eyes-sclera non icteric ENT-NAD Lungs-CTA Heart-regular S1/S2 Abdomen-soft. mild tenderness in lower abdomen , Neuro-no focal neurological deficit Lab data as noted below. ASSESSMENT & PLAN: ABDOMINAL PAIN with DIARRHEA possible viral gastroenteritis Prior colonoscopy 04/2016- hemorrhoids and solitary rectal ulcer CT a/p- findings of nonspecific pancolitis, likely on an infectious or inflammatory basis Leukocytosis has resolved Stool studies negative including stool cx, WBC smear, C diff -negative assay PRN Imodium ordered -pt has been refusing it -concerned that she will develop constipation on empiric Cipro and Flagyl -will change to PO complete total 10 days course appreciate GI -stable to bed discharged home Diet advanced to low lactose /low fiber diet tolerating well GI BLEEDING possible . hemorrhoidal bleeding Hg stable GI consulted -diet advanced DEPRESSION/ ANXIETY Stable; continue Prozac, Cymbalta and PRN Ativan CHRONIC BACK PAIN FIBROMYALGIA Continue gabapentin, Flexeril, Cymbalta DVT PROPHYLAXIS SCD's ambulate FULL CODE DISPOSITION discharge home when medically stable Follows with Dr. Malin for primary care Vital Signs: Date Time Temp Pulse Resp B/P Pulse Ox O2 Delivery O2 Flow Rate FiO2 07/27/16 14:45 36.5 88 18 112/75 96 Room Air 07/27/16 07:18 36.7 102 16 114/76 98 Room Air 07/27/16 00:00 Room Air 07/26/16 23:21 37.0 101 20 104/69 97 Room Air 07/26/16 20:00 Room Air
[2016-07-27] MEDS: PANTOprazole SOD 40 MG TAB PO SCH (19:34)
[2016-07-27] MEDS: FLUOXETINE HCL 20 MG CAP PO SCH (19:35)
[2016-07-27] MEDS: METRONIDAZOLE 500 MG TAB PO SCH (22:33)
[2016-07-27 23:21] VITALS: BP 109/77; PULSE 109; TEMP 36.3; O2SAT 97
[2016-07-28 07:12] VITALS: BP 122/79; PULSE 97; TEMP 36.7; O2SAT 98
[2016-07-28] MEDS: SODIUM CHLORIDE 0.9% 1000ML 1,000 ML IV SCH (07:40)
[2016-07-28] MEDS: DULOXETINE HCL 20 MG CAP PO SCH (07:43)
[2016-07-28] MEDS: METRONIDAZOLE 500 MG TAB PO SCH ×2 (07:43→13:17)
[2016-07-28] MEDS: GABAPENTIN 300 MG CAP PO SCH ×2 (07:44→13:18)
[2016-07-28] MEDS: DICYCLOMINE HCL 10 MG CAP PO SCH ×2 (07:44→13:17)
[2016-07-28] MEDS: PANTOprazole SOD 40 MG TAB PO SCH (07:44)
[2016-07-28 07:47] LABS: HEMATOCRIT 34.2 % (37-47); MEAN CORPUSCULAR HEMOGLOBIN 30.3 pg (25-34); MEAN CORPUSCULAR HGB CONC 33.6 g/dl (32-36); MEAN PLATELET VOLUME 10.5 fL (7.4-10.4); PLATELET COUNT 225 K/uL (130-400); WHITE BLOOD COUNT 9.56 K/uL (4.8-10.8)
[2016-07-28] MEDS ORDERED: CIPROFLOXACIN 500 MG TAB PO SCH (08:00)
[2016-07-28 08:25] LABS: BUN/CREATININE RATIO 6.3 (10-20); CREATININE 0.82 mg/dl (0.60-1.20); POTASSIUM 3.6 mmol/L (3.5-5.1)
[2016-07-28 08:51] LABS: CALCIUM 8.7 mg/dl (8.5-10.1)
--- NOTE | 2016-07-28 13:36 | Progress Note ---
Subjective Date of Service: Jul 28, 2016. Subjective Pt evaluation today including: conversation w/ patient, physical exam, lab review, review of studies, review of inpatient medication list Saw/examined the patient in room 455 She is doing well today; tolerated her lunch with no issues Mild residual tenderness at lower abdomen, but much improved No diarrhea, no nausea/vomiting Problem List Medical Problems: (1) Leukocytosis Status: Acute (2) Pancolitis Status: Acute (3) Right lower quadrant abdominal pain Status: Acute Review of Systems Constitutional: No chills, No fever Respiratory: No cough, No shortness of breath, No sputum Cardiac: No chest pain, No edema, No palpitations Abdomen: No GI bleeding, No constipation, No diarrhea, No nausea, No pain, No vomiting Medications Current Inpatient Medications Medications (Trade) Dose Ordered Sig/Mel Route Start Time Stop Time Status Last Admin Dose Admin Ioversol (Optiray 320) 100 ml UD PRN IV 07/25/16 13:45 07/29/16 13:44 Acetaminophen (Tylenol Tab) 650 mg Q4H PRN PO 07/25/16 18:30 08/24/16 18:29 07/27/16 08:02 650 MG Ondansetron HCl 4 mg 4 mg Q6H PRN IV 07/25/16 18:30 08/24/16 18:29 07/27/16 12:22 4 MG Sodium Chloride (Nss 1000ml) 1,000 ml @ 100 mls/hr Q10H IV 07/25/16 18:45 08/24/16 18:44 07/28/16 07:40 100 MLS/HR Duloxetine HCl (Cymbalta Cap) 20 mg DAILY PO 07/26/16 08:00 08/25/16 08:59 07/28/16 07:43 20 MG Fluoxetine HCl (Prozac Cap) 60 mg HS PO 07/25/16 21:00 08/24/16 20:59 07/27/16 19:35 60 MG Gabapentin (Neurontin Cap) 600 mg TID PO 07/25/16 20:00 08/24/16 20:59 07/28/16 13:18 600 MG Lorazepam (Ativan Tab) 0.5 mg DAILY PRN PO 07/25/16 18:45 08/24/16 18:44 07/27/16 12:26 0.5 MG Promethazine HCl (Phenergan Tab) 25 mg Q6H PRN PO 07/25/16 18:45 08/24/16 18:44 07/26/16 13:40 25 MG Miscellaneous Information (Order Awaiting Action) 1 ea QS N/A 07/26/16 00:00 08/25/16 00:00 Miscellaneous Information (Order Awaiting Action) 1 ea QS IA 07/26/16 00:00 08/25/16 00:00 Miscellaneous (Iv Fluids Completed) 1 ea PRN PRN N/A 07/25/16 18:45 07/25/17 18:44 07/26/16 05:20 1 EA Morphine Sulfate (MoRPHine SULFATE INJ) 1 mg Q6H PRN IV 07/26/16 09:45 08/09/16 09:44 07/26/16 13:40 1 MG Loperamide HCl (Imodium Cap) 2 mg Q8 PRN PO 07/26/16 21:00 08/25/16 20:59 Dicyclomine HCl (Bentyl Cap) 10 mg TID PO 07/27/16 14:00 08/26/16 13:59 07/28/16 13:17 10 MG Pantoprazole Sodium (Protonix Tab) 40 mg BID PO 07/27/16 20:00 08/26/16 19:59 07/28/16 07:44 40 MG Ciprofloxacin (Cipro Tab) 500 mg BID PO 07/28/16 08:00 08/05/16 19:59 07/28/16 07:44 500 MG Metronidazole (Flagyl Tab) 500 mg TID PO 07/27/16 22:30 08/04/16 22:29 07/28/16 13:17 500 MG Objective Vital Signs Date Time Temp Pulse Resp B/P Pulse Ox O2 Delivery O2 Flow Rate FiO2 07/28/16 08:00 Room Air 07/28/16 07:12 36.7 97 16 122/79 98 Room Air 07/28/16 00:00 Room Air 07/27/16 23:21 36.3 109 20 109/77 97 Room Air 07/27/16 20:00 Room Air 07/27/16 14:45 36.5 88 18 112/75 96 Room Air Physical Exam General Appearance: no apparent distress Respiratory/Chest: no respiratory distress, no accessory muscle use Cardiovascular: regular rate, rhythm, no edema, no murmur Abdomen: normal bowel sounds, non tender, soft, no organomegaly, no pulsatile mass Laboratory Results Last 24 Hours Test 07/28/16 07:20 White Blood Count 9.56 K/uL Red Blood Count 3.80 M/uL Hemoglobin 11.5 g/dL Hematocrit 34.2 % Mean Corpuscular Volume 90.0 fL Mean Corpuscular Hemoglobin 30.3 pg Mean Corpuscular Hemoglobin Concent 33.6 g/dl RDW Standard Deviation 39.3 fL RDW Coefficient of Variation 12.1 % Platelet Count 225 K/uL Mean Platelet Volume 10.5 fL Sodium Level 144 mmol/L Potassium Level 3.6 mmol/L Chloride Level 107 mmol/L Carbon Dioxide Level 31 mmol/L Anion Gap 6.0 mmol/L Blood Urea Nitrogen 5 mg/dl Creatinine 0.82 mg/dl Est Creatinine Clear Calc Drug Dose 118.1 ml/min Estimated GFR () 117.7 Estimated GFR (Non- 101.6 BUN/Creatinine Ratio 6.3 Random Glucose 99 mg/dl Calcium Level 8.7 mg/dl Assessment and Plan This is a 21 year old female with PMH of chronic, alternating diarrhea/ constipation, abdominal pain, depression/anxiety presents with abdominal pain Abdominal Pain with Diarrhea lower abdominal pain, which has improved since admission CT showed - pancolitis, possible infectious vs. inflammatory has had colonoscopies in the past - last one in April 2016, showing solitary rectal ulcer stool cultures - negative for bacteria, negative for C. diff, few WBCs +leukocytosis on presentation will continue Cipro + Flagyl for a total of 10 days continue a regular low lactose, and low fiber diet Dicyclomine 10mg TID for cramping on discharge plan for discharge home today (07/28) GI bleeding H/H stable; down from 13.6 to 11.5 likely due to hard stools and her solitary rectal ulcer No bleeding noted today outpatient lab work to f/u on H/H Depression/Anxiety Continue home medications Fibromyalgia continue home medications DVT ppx SCDs FULL CODE d/c home today
[2016-07-28] MEDS ORDERED: BNT10 PO (13:37)
[2016-07-28] MEDS ORDERED: CPR500 PO (13:37)
[2016-07-28] MEDS ORDERED: MTR500 PO (13:37)
--- NOTE | 2016-07-28 13:39 | Discharge Instructions ---
Discharge Instructions Date of Service Jul 28, 2016. Admission Reason for Admission: Colitis Discharge Discharge Diagnosis / Problem: Colitis, possibly infectious Discharge Goals Goal(s): Decrease discomfort, Improve function, Diagnostic testing, Therapeutic intervention Activity Recommendations Activity Limitations: resume your previous activity . Instructions / Follow-Up Instructions / Follow-Up Please follow-up with your primary care doctor * You will be on Cipro and Flagyl (antibiotics) for 7 days * You will be prescribed Bentyl - use this for crampy abdominal pain * Primary care doctor should recheck your blood work (CBC) to check your Hemoglobin level Current Hospital Diet Patient's current hospital diet: Low Lactose Diet, Low Fiber Diet, Regular Diet Discharge Diet Recommended Diet: Low Fiber Diet, Low Lactose Diet Pending Studies Studies pending at discharge: no Medical Emergencies . Who to Call and When: Medical Emergencies: If at any time you feel your situation is an emergency, please call 911 immediately. . Non-Emergent Contact Non-Emergency issues call your: Primary Care Provider . . "Provider Documentation" section prepared by Bernadette Thrasher. . VTE Core Measure Inpt VTE Proph given/why not?: Treatment not indicated
--- NOTE | 2016-07-28 13:40 | Discharge Summary ---
Discharge Summary Date of Service Jul 28, 2016. Discharge Summary Admission Date: Jul 25, 2016 at 18:24 Discharge Date: Jul 28, 2016 Discharge Disposition: Home Principal Diagnosis: Possible Infectious Colitis Medication Reconciliation New Medications: Ciprofloxacin (Ciprofloxacin HCl) 500 Mg Tab 500 MG PO BID for 7 Days, #14 TAB Dicyclomine HCl (Dicyclomine HCl) 10 Mg Cap 10 MG PO TID for 7 Days, #21 CAP Metronidazole (Metronidazole) 500 Mg Tab 500 MG PO TID for 7 Days, #21 TAB Continued Medications: Cyclobenzaprine Hcl (Flexeril) 10 Mg Tab 10 MG PO Q6 PRN for Muscle Spasms, #21 TAB Duloxetine HCl (Cymbalta) 20 Mg Cap 20 MG PO DAILY for 30 Days, #30 CAP Fluoxetine (Prozac) 20 Mg Cap 60 MG PO HS, CAP Gabapentin (Neurontin) 300 Mg Cap 600 MG PO TID, CAP Lidocaine-Hydrocortisone Aceta (Lidazone Hc) 1 Cre Cre 1 APPLN [place] UD PRN for rectal pain Linaclotide (Linzess) 145 Mcg Cap 1 TAB PO Q2D Lorazepam (Ativan) 0.5 Mg Tab 0.5 MG PO DAILY PRN for Anxiety, TAB Omeprazole (Prilosec) 20 Mg Capcr 20 MG PO DAILY, CAP Uzqkwtnao-Gmkissyifqphx-Brxfzh (Preparation H) 1 Cre Cre 1 APPLN UT UD PRN for rectal pain Promethazine Hcl (Phenergan) 25 Mg Tab 25 MG PO Q6H PRN for Nausea, TAB Admission Information HPI (per Admitting provider): This is a 21 year old female with PMH of GERD, chronic constipation, chronic back pain, fibromyalgia, depression, anxiety, who presents to the ED with abdominal pain. She was seen by Ana AGUERO in Apr 2016 for rectal bleeding and chronic constipation.. Had colonoscopy 04/26/2016 which showed hemorrhoids and solitary rectal ulcer. She reports ongoing constipation up until today with ongoing rectal pain, straining for stool, and bright red blood per rectum (blood fills the toilet with every BM). Then this morning she developed sharp pain in central low abdomen with diffuse "gas pain" and sensation she needed to defecate. After that time has had 2 liquid BM's with bright red blood. Passing stool helped the pain which was initially 8/10 and now rated 2/10. She reports associated fatigue, generalized weakness, feeling off balance. Last food intake was at 6 am today. PO intake was normal before. Has chronic intermittent nausea relieved by Phenergan. Reflux has been controlled on omeprazole. Weight has been stable. Not taking narcotic pain med in past 1 month. Denies fever, chills, sweats, oral sores, swallowing difficulty , URI symptoms, cough, CP, SOB, vomiting, melena, dysuria, frequency, urgency, rash, calf pain, edema. 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 diff. No recent travel or antibiotics. The pt does not have a personal hx of inflammatory bowel disease. No hx of abdominal surgery. Physical Exam (per Admitting): General Appearance: WD/WN, no apparent distress, + pertinent finding ( pleasant alert 21 year old female, lying in bed, no distress) Head: normocephalic, atraumatic Eyes: normal inspection, PERRL, sclerae normal ENT: hearing grossly normal, pharynx normal Neck: supple, trachea midline Respiratory/Chest: lungs clear, normal breath sounds, no respiratory distress Cardiovascular: regular rate, rhythm, no murmur Abdomen/GI: normal bowel sounds, soft, + pertinent finding (moderately tender in suprapubic region. mildly tender in RLQ. no guarding. no rebound tenderness. ) Extremities/Musculoskelatal: no calf tenderness, normal capillary refill, no pedal edema Neurologic/Psych: alert, normal mood/affect, oriented x 3, + pertinent finding (grossly nonfocal ) Skin: normal color, warm/dry Hospital Course This is a 21 year old female with PMH of chronic, alternating diarrhea/ constipation, abdominal pain, depression/anxiety presents with abdominal pain Abdominal Pain with Diarrhea lower abdominal pain, which has improved since admission CT showed - pancolitis, possible infectious vs. inflammatory has had colonoscopies in the past - last one in April 2016, showing solitary rectal ulcer stool cultures - negative for bacteria, negative for C. diff, few WBCs +leukocytosis on presentation will continue Cipro + Flagyl for a total of 10 days continue a regular low lactose, and low fiber diet Dicyclomine 10mg TID for cramping on discharge plan for discharge home today (07/28) GI bleeding H/H stable; down from 13.6 to 11.5 likely due to hard stools and her solitary rectal ulcer No bleeding noted today outpatient lab work to f/u on H/H Depression/Anxiety Continue home medications Fibromyalgia continue home medications DVT ppx SCDs FULL CODE d/c home today Total time spent on discharge = 25 minutes This includes examination of the patient, discharge planning, medication reconciliation, and communication with other providers. Discharge Instructions Please follow-up with your primary care doctor * You will be on Cipro and Flagyl (antibiotics) for 7 days * You will be prescribed Bentyl - use this for crampy abdominal pain * Primary care doctor should recheck your blood work (CBC) to check your Hemoglobin level
[2016-07-28 13:47] VITALS: BP 122/79; PULSE 97; TEMP 36.7; O2SAT 98
[2016-07-28 16:39] LABS: CRYPTOSPORIDIUM AG TC 37213 NOT DETECTED (NOT DETECTED); ISOSPORA+CYCLOSPORA NOT DETECTED; O&P GIARDIA AG NOT DETECTED (NOT DETECTED); O&P SOURCE OTHER-STOOL
== END 2016-07-28 15:09 | disposition home or self-care (01) ==
LOC: ENRESERVTM → ENRESERVDT → C.EDB 13:07 → C.MS4W 18:24
PROVIDERS: ADMIT Hospitalist; ATTEND Hospitalist
DX: R10.31 Right lower quadrant pain (principal); K62.6 Ulcer of anus and rectum; F41.9 Anxiety disorder, unspecified; F32.9 Major depressive disorder, single episode, unspecified; M79.7 Fibromyalgia; K21.9 Gastro-esophageal reflux disease without esophagitis; Z90.89 Acquired absence of other organs; Z79.899 Other long term (current) drug therapy; Z91.018 Allergy to other foods

== ENCOUNTER 2016-08-06 09:16 | Emergency (ER) | payer OTHER ==
[~2016-08-06] VITALS: Ht 172.7 cm; Wt 78.0 kg
[~2016-08-06 09:16] MED LIST changes: -ALPR-411 PO; +BNT10 PO; +CPR500 PO; +CYCL10TA6 PO; +DULO-24 PO; +FLUO20CA35 PO; +GABA-113 PO; -IBUP-1050 PO; +LINA1CAP PO; +LORA-741 PO; +MTR500 PO; +PRAMCRE2 PR; -PROM25TA PO; +PROM25TA9 PO; -SERT50TA PO; +[UNRECOGNIZED DRUG - CODE] PR
[2016-08-06 09:19] VITALS: TEMP 36.6; Ht 172.7 cm; Wt 78.0 kg
[2016-08-06] MEDS ORDERED: ONDANSETRON INJ 2 MG/ML 2 ML VIAL IV STA (09:46)
[2016-08-06] MEDS ORDERED: SODIUM CHLORIDE 0.9% 1000ML 2,000 ML IV STA (09:46)
[2016-08-06 10:23] LABS: BASO % 0.6 %; BASO ABS # 0.06 K/uL (0-0.2); COMPLETE YES; EOS % 0.9 %; HEMATOCRIT 36.7 % (37-47); IG% 0.4 %; LYMPH % 27.4 %; LYMPH ABS # 2.78 K/uL (1.2-3.4); MEAN CELL VOLUME 87.6 fL (80-100); MEAN CORPUSCULAR HEMOGLOBIN 29.6 pg (25-34); MEAN CORPUSCULAR HGB CONC 33.8 g/dl (32-36); MEAN PLATELET VOLUME 10.2 fL (7.4-10.4); NEUT % 63.7 %; PLATELET COUNT 312 K/uL (130-400); RED BLOOD COUNT 4.19 M/uL (4.2-5.4); WHITE BLOOD COUNT 10.14 K/uL (4.8-10.8)
[2016-08-06 10:25] LABS: MANUAL MICROSCOPIC REQUIRED? NO; REVIEW REQ? NO; URINE APPEARANCE CLEAR (CLEAR); URINE BILIRUBIN NEG (NEG); URINE COLOR DK YELLOW; URINE EPITHELIAL CELL AUTO >30 /lpf (0-5); URINE NITRITE NEG (NEG); URINE PH 6.5 (4.5-7.5); URINE SPECIFIC GRAVITY 1.028 (1.000-1.030); UROBILINOGEN NEG (NEG); ZZUR CULT IF INDIC CLEAN CATCH NO
[2016-08-06 10:31] LABS: ALT/SGPT 24 U/L (12-78); BLOOD UREA NITROGEN 10 mg/dl (7-18); BUN/CREATININE RATIO 11.4 (10-20); CARBON DIOXIDE 26 mmol/L (21-32); CHLORIDE 104 mmol/L (98-107); CREATININE 0.88 mg/dl (0.60-1.20); GLUCOSE 81 mg/dl (70-99); MAGNESIUM 1.9 mg/dl (1.8-2.4); POTASSIUM 3.6 mmol/L (3.5-5.1); SODIUM 140 mmol/L (136-145)
[2016-08-06 10:34] LABS: ALKALINE PHOSPHATASE 77 U/L (45-117); AST/SGOT 21 U/L (15-37)
[2016-08-06 10:47] LABS: CALCIUM 9.4 mg/dl (8.5-10.1)
--- NOTE | 2016-08-06 11:24 | DIAGNOSTIC IMAGING REPORT ---
PA CHEST RADIOGRAPH AND UPRIGHT AND SUPINE AP RADIOGRAPHS OF THE ABDOMEN CLINICAL HISTORY: Colitis. Diarrhea. COMPARISON STUDY: CT of the abdomen and pelvis July 25, 2016. FINDINGS: Lung volumes are normal. Lungs are clear. There is no pneumothorax or pleural effusion. Cardiac size is normal. Mediastinal contours are normal. There is no evidence of pulmonary edema. There is no free air. The bowel gas pattern is normal. IMPRESSION: 1. No free air or evidence of bowel obstruction. 2. No acute cardiopulmonary findings. Electronically signed by: Javier Calhoun M.D. 08/06/2016 11:23 AM Dictated Date/Time: 08/06/2016 11:22 AM
[2016-08-06] MEDS ORDERED: PSYLLIUM 58.6% PWD PACK S\\F PO STA (11:48)
[2016-08-06] MEDS ORDERED: DICYCLOMINE HCL 10 MG CAP PO ONE (12:00)
--- NOTE | 2016-08-06 12:00 | EMERGENCY ROOM VISIT NOTE ---
History Report prepared by Rufus: Nikki Carrion Under the Supervision of: Dr. Laurie Robles M.D. First contact with patient: 09:40 Chief Complaint: ABDOMINAL PAIN Stated Complaint: ABD. PAIN W/NAUSEA, MUCUS STOOLS Nursing Triage Summary: PT C/O NAUSEA/ABDOMINAL PAIN SINCE YESTERDAY, WAS SEEN HERE IN THE ED YESTERDAY , DIAGNOSED WITH COLITIS. PT VERBALIZES PAIN IS WORSE TODAY, WAS TOLD TO RETURN IF ANYTHING WORSENED. History of Present Illness The patient is a 21 year old female who presents to the Emergency Room with complaints of persistent abdominal pain starting last night. She rates her discomfort as a 7/10 in severity. She reports nausea and dry heaving. Her bowel movement have consisted of blood and mucous. She had 12 bowel movements in the past day. She denies any headache. She was in the ED 2 weeks ago and diagnosed with colitis. She states the pain is similar to the previous pain. She was admitted at that time. Since then she has followed up with GI as an outpatient, but has not had a colonoscopy as they were waiting for the colitis to clear up. She had a colonoscopy 3 months ago which was normal. She has been on Flagyl and Cipro. Today was the last day of her antibiotics. Source of History: patient Onset: last night Position: abdomen Symptom Intensity: 7/10 Quality: other (pain) Timing: other (persistent) Associated Symptoms: + nausea, No headache Note: Pt reports dry heaving, bowel movements consisting of blood and mucous, frequent bowel movements. Review of Systems See HPI for pertinent positives & negatives. A total of 10 systems reviewed and were otherwise negative. Past Medical & Surgical Medical Problems: (1) Anxiety (2) Chronic back pain (3) Colitis (4) Constipation (5) Depression (6) Fibromyalgia (7) GERD (gastroesophageal reflux disease) (8) Lyme disease (9) Mononucleosis (10) Pneumonia Surgical Problems: (1) H/O colonoscopy (2) H/O esophagogastroduodenoscopy (3) S/P tonsillectomy Family History Ulcerative colitis SISTER Social History Smoking Status: Never Smoker Alcohol Use: none Drug Use: none Marital Status: single, in relationship Housing Status: lives with family Occupation Status: employed Current/Historical Medications Scheduled Ciprofloxacin (Ciprofloxacin HCl), 500 MG PO BID Dicyclomine HCl (Dicyclomine HCl), 10 MG PO TID Duloxetine HCl (Cymbalta), 20 MG PO DAILY Fluoxetine (Prozac), 60 MG PO HS Gabapentin (Neurontin), 600 MG PO TID Linaclotide (Linzess), 1 TAB PO Q2D Metronidazole (Metronidazole), 500 MG PO TID Omeprazole (Prilosec), 20 MG PO DAILY Scheduled PRN Cyclobenzaprine Hcl (Flexeril), 10 MG PO Q6 PRN for Muscle Spasms Lidocaine-Hydrocortisone Aceta (Lidazone Hc), 1 APPLN SD UD PRN for rectal pain Lorazepam (Ativan), 0.5 MG PO DAILY PRN for Anxiety Ckxsaldiz-Qozcgveurxgul-Icvvcw (Preparation H), 1 APPLN SD UD PRN for rectal pain Promethazine Hcl (Phenergan), 25 MG PO Q6H PRN for Nausea Allergies Coded Allergies: Escitalopram (Unverified Allergy, Severe, DRY HEAVE, 08/06/16) Pineapple (Verified Allergy, Unknown, TONGUE SWELLS,ITCHING, 08/06/16) Physical Exam Vital Signs Date Time Temp Pulse Resp B/P Pulse Ox O2 Delivery O2 Flow Rate FiO2 08/06/16 12:09 103 18 106/70 98 08/06/16 10:18 88 16 124/85 100 Room Air 08/06/16 09:19 36.6 109 18 131/88 98 Room Air Physical Exam Vital signs reviewed. General: Well-appearing, in no significant distress. HEENT: No scleral icterus, PERRLA, neck supple. Atraumatic. Cardiovascular: Regular rate and rhythm, no extra sounds. Pulmonary: Clear to auscultation bilaterally, normal work of breathing. Abdomen: Soft, nontender, nondistended, positive bowel sounds. Musculoskeletal: Atraumatic, no peripheral edema. Neurologic: Patient awake alert and oriented x 3 Skin: Warm, dry, no rash Medical Decision & Procedures ER Provider Diagnostic Interpretation: X-ray results as stated below per interpretation by me and the radiologist: PA CHEST RADIOGRAPH AND UPRIGHT AND SUPINE AP RADIOGRAPHS OF THE ABDOMEN CLINICAL HISTORY: Colitis. Diarrhea. COMPARISON STUDY: CT of the abdomen and pelvis July 25, 2016. FINDINGS: Lung volumes are normal. Lungs are clear. There is no pneumothorax or pleural effusion. Cardiac size is normal. Mediastinal contours are normal. There is no evidence of pulmonary edema. There is no free air. The bowel gas pattern is normal. IMPRESSION: 1. No free air or evidence of bowel obstruction. 2. No acute cardiopulmonary findings. Electronically signed by: Javier Calhoun M.D. 08/06/2016 11:23 AM Dictated Date/Time: 08/06/2016 11:22 AM Laboratory Results 08/06/16 10:05 Red Blood Count 4.19, Mean Corpuscular Volume 87.6, Mean Corpuscular Hemoglobin 29.6, Mean Corpuscular Hemoglobin Concent 33.8, Mean Platelet Volume 10.2, Neutrophils (%) (Auto) 63.7, Lymphocytes (%) (Auto) 27.4, Monocytes (%) (Auto) 7.0, Eosinophils (%) (Auto) 0.9, Basophils (%) (Auto) 0.6, Neutrophils # (Auto) 6.46, Lymphocytes # (Auto) 2.78, Monocytes # (Auto) 0.71, Eosinophils # (Auto) 0.09, Basophils # (Auto) 0.06 08/06/16 10:05 Test 08/06/16 10:04 08/06/16 10:05 Urine Color DK YELLOW Urine Appearance CLEAR (CLEAR) Urine pH 6.5 (4.5-7.5) Urine Specific [place] 1.028 (1.000-1.030) Urine Protein NEG (NEG) Urine Glucose (UA) NEG (NEG) Urine Ketones 2+ (NEG) Urine Occult Blood NEG (NEG) Urine Nitrite NEG (NEG) Urine Bilirubin NEG (NEG) Urine Urobilinogen NEG (NEG) Urine Leukocyte Esterase TRACE (NEG) Urine WBC (Auto) 1-5 /hpf (0-5) Urine RBC (Auto) 0-4 /hpf (0-4) Urine Hyaline Casts (Auto) 1-5 /lpf (0-5) Urine Epithelial Cells (Auto) >30 /lpf (0-5) Urine Bacteria (Auto) NEG (NEG) Urine Test NEG (NEG) White Blood Count 10.14 K/uL (4.8-10.8) Red Blood Count 4.19 M/uL (4.2-5.4) Hemoglobin 12.4 g/dL (12.0-16.0) Hematocrit 36.7 % (37-47) Mean Corpuscular Volume 87.6 fL (80-100) Mean Corpuscular Hemoglobin 29.6 pg (25-34) Mean Corpuscular Hemoglobin Concent 33.8 g/dl (32-36) Platelet Count 312 K/uL (130-400) Mean Platelet Volume 10.2 fL (7.4-10.4) Neutrophils (%) (Auto) 63.7 % Lymphocytes (%) (Auto) 27.4 % Monocytes (%) (Auto) 7.0 % Eosinophils (%) (Auto) 0.9 % Basophils (%) (Auto) 0.6 % Neutrophils # (Auto) 6.46 K/uL (1.4-6.5) Lymphocytes # (Auto) 2.78 K/uL (1.2-3.4) Monocytes # (Auto) 0.71 K/uL (0.11-0.59) Eosinophils # (Auto) 0.09 K/uL (0-0.5) Basophils # (Auto) 0.06 K/uL (0-0.2) RDW Standard Deviation 38.5 fL (36.4-46.3) RDW Coefficient of Variation 12.1 % (11.5-14.5) Immature Granulocyte % (Auto) 0.4 % Immature Granulocyte # (Auto) 0.04 K/uL (0.00-0.02) Anion Gap 10.0 mmol/L (3-11) Est Creatinine Clear Calc Drug Dose 110.1 ml/min Estimated GFR () 108.1 Estimated GFR (Non- 93.3 BUN/Creatinine Ratio 11.4 (10-20) Calcium Level 9.4 mg/dl (8.5-10.1) Magnesium Level 1.9 mg/dl (1.8-2.4) Total Bilirubin 0.4 mg/dl (0.2-1) Direct Bilirubin < 0.1 mg/dl (0-0.2) Aspartate Amino Transf (AST/SGOT) 21 U/L (15-37) Alanine Aminotransferase (ALT/SGPT) 24 U/L (12-78) Alkaline Phosphatase 77 U/L (45-117) Total Protein 7.7 gm/dl (6.4-8.2) Albumin 4.1 gm/dl (3.4-5.0) Lipase 116 U/L (73-393) Laboratory results per my review. Medications Administered Medications (Trade) Dose Ordered Sig/Mel Route Start Time Stop Time Status Last Admin Dose Admin Sodium Chloride (Nss 1000ml) 2,000 ml @ 999 mls/hr Q2H1M STAT IV 08/06/16 09:46 08/06/16 11:46 DC 08/06/16 09:46 999 MLS/HR Ondansetron HCl (Zofran Inj) 4 mg NOW STAT IV 08/06/16 09:46 08/06/16 09:49 DC 08/06/16 10:13 4 MG Dicyclomine HCl (Bentyl Cap) 10 mg NOW ONCE PO 08/06/16 12:00 08/06/16 12:01 DC 08/06/16 12:00 10 MG ED Course 0944: Past medical records reviewed. The patient was evaluated in room A10. A complete history and physical examination was performed. 0946: Zofran Inj 4 mg IV, NSS 2000 ml @ 999 mls/hr IV. 1143: I discussed the patient's case with Ana Hickman - gastroenterology. He suggest the patient start a fiber supplement and continue Bentyl. She can call GI for a follow up tomorrow. 1148: Metamucil Powder 1 pkt PO. 1200: Bentyl Cap 10 mg PO. 1201: Upon reevaluation, the patient appeared to have improvement of her symptoms. I discussed findings with her. She verbalized agreement of the treatment plan. She was discharged home. Medical Decision Differential diagnosis: Etiologies such as appendicitis, diverticulitis, PUD, biliary pathology, UTI, pancreatitis, obstruction, mesenteric ischemia, aortic pathology, infections, inflammatory bowel disease, renal colic, as well as others were entertained. This patient was evaluated and appeared to be in no significant distress. IV access was obtained and laboratory work was drawn. The patient was placed on the electronic device monitor. Patient was hydrated with normal saline solution, given IV Zofran. Patient was not able to provide a stool specimen. She has tested negative for significant the past. I did discuss the case to Dr. Menon of gastroenterology. He has recommended when necessary Bentyl for cramping. She has completed her course of antibiotics. He does not feel that steroids are indicated at this time. The patient will follow-up with gastroenterology this week and return to the ER for worsening of symptoms or any medical concerns. Consults Time Called: [phone] Consulting Physician: Dr. Menon, [facility] - gastroenterology Returned Call: [phone] I discussed the patient's case with him. He suggest the patient start a fiber supplement and continue Bentyl. She can call GI for a follow up tomorrow. Impression Primary Impression: Diarrhea Scribe Attestation The scribe's documentation has been prepared under my direction and personally reviewed by me in its entirety. I confirm that the note above accurately reflects all work, treatment, procedures, and medical decision making performed by me. Departure Information Dispostion Home / Self-Care Referrals Chong Malin M.D. (PCP) Forms HOME CARE DOCUMENTATION FORM, IMPORTANT VISIT INFORMATION Patient Instructions My [facility] Additional Instructions Diagnosis: Diarrhea and abdominal cramping Metamucil fiber supplement once daily. Drink plenty of clear fluids. Do not use your MiraLAX if you're having diarrhea. Bentyl 10 mg 3 times a day as prescribed. Follow-up with gastroenterology tomorrow by telephone and schedule a follow-up appointment. Return to the ER for worsening of symptoms or any medical concerns. Problem Qualifiers Primary Impression: Diarrhea Diarrhea type: functional diarrhea Qualified Codes: K59.1 - Functional diarrhea
[2016-08-06 12:09] VITALS: BP 106/70; PULSE 103; O2SAT 98
== END 2016-08-06 12:13 | disposition home or self-care (01) ==
LOC: C.EDB 09:18 → C.EDA 12:13
DX: K59.1 Functional diarrhea (principal); F41.9 Anxiety disorder, unspecified; M54.9 Dorsalgia, unspecified; G89.29 Other chronic pain; K59.00 Constipation, unspecified; F32.9 Major depressive disorder, single episode, unspecified; K21.9 Gastro-esophageal reflux disease without esophagitis; M79.7 Fibromyalgia; A69.20 Lyme disease, unspecified